=== PATIENT | male | born 1990 | race Caucasian/White ===

== ENCOUNTER 2016-12-10 01:58 | Observation (INO) | payer BC ==
[~2016-12-10] VITALS: Ht 167.6 cm; Wt 91.1 kg
--- NOTE | ~2016-12-10 | HP ---
ADMIT: 12/10/2016 RM/LOC: 405 [facility] MR#: [id number] 2620 [facility] [address] [place], [place] [address] LUISANA MADISON [address] [place] [address] Pre-OP History and Physical SEX: M AGE: 26 : 1990 DATE OF SERVICE: 12/10/2016 CHIEF COMPLAINT: Chest pain, hematemesis, previous food bolus with forceful emesis. HISTORY OF PRESENT ILLNESS: This is a pleasant 26-year-old male patient who was eating a piece of steak last night. It got stuck in his esophagus, he was unable to bring it up. He visited the ER at [place], and while there, he had a very forceful emesis at which time he vomited up according to report about 1500 mL of triston blood. He was subsequently transferred down to [place], seen in the ER here at which time he was still having quite a bit of substernal pain, epigastric pain, received Dilaudid last night and some IV fluids. He had chest x-ray initially which showed no pneumomediastinum or pneumothorax, but then had a CT scan, which has not been read out officially, but per my look at it, it looks like he did have a bit of a blush or active extravasation in the esophagus with actually some contrast pooling in the stomach and quite a bit of gastric contents, which I assume a lot of that is old clot and blood. This scan was done early this morning. The patient is feeling somewhat better. He has had more nausea and another episode of about 300 mL of emesis this morning, which he said relieved some of this nausea. His pain is improved. He is not taking the Dilaudid at this time. He is able to tolerate his own secretions. He does not feel like his esophagus was obstructed. He has not been feverish or chilled. No shortness of breath. PAST MEDICAL HISTORY: Illnesses, none. MEDICATIONS: None. ALLERGIES: NONE. PREVIOUS SURGERIES: None. SOCIAL HISTORY: He does drink alcohol occasionally. Denies any tobacco use. FAMILY HISTORY: Noncontributory. REVIEW OF SYSTEMS: A 10-point review of systems is negative with the exception of his hematemesis, some nausea, emesis of previous food bolus which resolved with his vomiting. PHYSICAL EXAMINATION: GENERAL: He is alert. He is oriented. Currently, in no acute distress. VITAL SIGNS: Stable. HEENT: Normal. LUNGS: Clear. HEART: Regular. ABDOMEN: Soft, nontender, and nondistended. No mass or organomegaly appreciated. EXTREMITIES: Warm and pink without edema ADMIT: 12/10/2016 RM/LOC: 405 [facility] MR#: [id number] [address] [address] [place] [address] Pre-OP History and Physical SEX: M AGE: 26 : 1990 LABORATORY DATA: Hemoglobin has dropped from around 14.4 down the mid 12 range, it is almost 2 g drop. His labs are otherwise normal. CT scan the chest, abdomen, and pelvis shows no evidence of free air, no pneumomediastinum, no pneumothorax, and no evidence of pleural effusion. He does have, per my interpretation, at least what looks like some active extravasation in the distal esophagus with contrast pooling in the stomach. ASSESSMENT: Esophageal food bolus with emesis and hematemesis, probable Madeleine-Lilly tear. PLAN: Given that he had this active extravasation on CT scan as well as a drop in his hemoglobin, I have recommended proceeding with EGD just to evaluate things and make sure he is not still actively bleeding. I have gone through risks and benefits of this procedure in depth with the patient. He does understand all this and agrees to proceed. Attila Pathak MD/ marcus JOB #: [id number] CC: Attila Pathak, Attending Physician Attila Pathak, Family Physician
--- NOTE | 2016-12-10 19:12 | ER ---
ADMIT: 12/10/2016 RM/LOC: 405 [facility] MR#: [id number] 26[address] [facility] [address] [place], [place] [address] LU[address]NA MADISON [address] [place] [address] Emergency Room Report SEX: M AGE: 26 : 1990 DATE: 12/10/2016 CHIEF COMPLAINT: Hematemesis. HISTORY OF PRESENT ILLNESS: Patient is a 26-year-old male, sent down from [place] after being evaluated in the ER there for hematemesis. Patient brought in a small bucket that was filled with blood, PA estimated 1500 mL. The patient states that he choked on steak earlier in the evening, was able to clear his esophagus and then had subsequent hematemesis. The patient has never had a Madeleine-Lilly tear or previous hematemesis. PAST MEDICAL HISTORY: ILLNESSES: None. OPERATIONS: Septoplasty in the remote past. ALLERGIES: NONE. MEDICATIONS: None. PAST SOCIAL HISTORY: Nonsmoker, nondrinker, no illicit drugs. FAMILY HISTORY: Negative per chart review. REVIEW OF SYSTEMS: A 12-point review of systems negative for all other systems, illnesses, or operations except as outlined above. PHYSICAL EXAMINATION: VITAL SIGNS: Temp 99.6, pulse 101, respirations 20, BP 122/86, SaO2 of 98%. GENERAL: Nontoxic, non-diaphoretic without jaundice or icterus. HEENT: Normocephalic. No evidence of epistaxis, rhinorrhea, or otorrhea. NECK: Supple without lymphadenopathy or thyromegaly. CHEST: Clear. Breath sounds equal. HEART: Tachycardic, regular without murmur, gallop, or edema. ABDOMEN: Soft, nontender, nondistended without mass or megaly. Bowel sounds hypoactive. EXTREMITIES: No evidence of Homans sign, synovitis, or dermatitis. NEURO: EOMI. PERRLA. No evidence of drift, dysarthria, or ataxia. Gait not assessed. MENTAL STATUS: Alert, oriented, anxious without delusions, hallucinations, or abnormal thought content. MEDICAL DECISION MAKING: Three-view of abdomen shows no evidence of free-air or bowel obstruction, normal chest x-ray. CT chest, abdomen, pelvis, no evidence of mediastinal air, otherwise unremarkable. Formal over read pending. WBC 13.9, hemoglobin 14.4, CRP 0.66, alcohol 4, troponin less than 0.015. BNP 6, tox screen negative. The patient was given 2 L of fluid prior to arrival at [place] and en route. IV was continued at 250 an hour, pantoprazole 80 mg bolus and drip at 8 mg an hour was started. The patient ADMIT: 12/10/2016 RM/LOC: 405 [facility] MR#: [id number] [address] [address] [place] [address] Emergency Room Report SEX: M AGE: 26 : 1990 did require Zofran and Dilaudid for further pain. Discussed findings with Dr. Pathak, who agreed and gave orders to nursing staff. DIAGNOSIS: Hematemesis, likely Madeleine-Lilly tear. RECOMMENDATION: Admit inpatient tele for Dr. Pathak. ADMISSION/DISCHARGE CONDITION: Stable. Patient is a full code. Manuel Stephenson MD/ marcus JOB #: [id number] CC: Attila Pathak MD, Attending Physician Attila Pathak MD, Family Physician Attila Pathak MD
[2016-12-11] MEDS ORDERED: ZOFRAN4 MG PO (15:48)
[2016-12-11] MEDS ORDERED: LORTAB LIQUID D15 ML PO (15:48)
[2016-12-11] MEDS ORDERED: PRILOSEC DPS20 MG PO (15:48)
--- NOTE | 2016-12-25 12:43 | OR ---
ADMIT: 12/10/2016 RM/LOC: 405 [facility]#: [id number] [id number] 2620 [facility] [address] [place], [place] [address] [address] MADISON [address] [address] Operative/Delivery Room Report SEX: M AGE: 26 : 1990 SURGERY DATE: 12/10/2016 SURGEON: Attila Pathak MD PREOPERATIVE DIAGNOSIS: Probable Madeleine-Lilly tear with upper gastrointestinal bleed. POSTOPERATIVE DIAGNOSIS: Significant distal esophageal Madeleine-Lilly tear with no active bleeding. PROCEDURE PERFORMED: EGD. ANESTHESIA: General endotracheal. ESTIMATED BLOOD LOSS: None. DESCRIPTION OF PROCEDURE: After appropriate informed consent was obtained, the patient was brought to the operating room. General endotracheal anesthesia was induced due to his recent upper GI bleeding concern for aspiration risk. With anesthesia induced, a well-lubricated endoscope was introduced and carefully passed down the esophagus. The proximal and mid esophagus appeared normal, but at the distal esophagus, he did have a significant tear. It is probably about 3 cm in length through the mucosa. There was some clot present there, but no active extravasation or bleeding. The GE junction appeared distinct and spared from any tear or bleeding. There was no stricture or narrowing there. No hiatal hernia. The scope was then easily advanced through this area. There was a fair bit of blood within the stomach that was immediately suctioned out, but there was no active bleeding in the stomach. No gastritis or ulcerations. The pylorus was intubated. Duodenal bulb, second and third portions of the duodenum appeared normal. The scope was then pulled back into the stomach, retroflexed, revealing no hiatal hernia from below. No proximal gastritis or mass. The stomach was then deflated and the scope carefully withdrawn. I again inspected the Madeleine- Lilly tear. There was no evidence of any active bleeding, so I left that alone. The scope was removed without apparent complications. The patient tolerated the procedure well and was taken to the recovery room in stable condition. Attila Pathak MD/ marcus JOB #: [id number] CC: Attila Pathak, Attending Physician Attila Pathak, Family Physician
== END 2016-12-10 15:00 | disposition home or self-care (01) ==
LOC: ER 01:58 → 4PCU 03:43
PROVIDERS: ADMIT Surgery
PROC: 0DJ08ZZ Inspection of Upper Intestinal Tract, Via Natural or Artificial Opening Endoscopic (ICD-10-PCS; principal; 2016-12-10)
DX: K22.6 Gastro-esophageal laceration-hemorrhage syndrome (principal); Z98.890 Other specified postprocedural states